=== PATIENT | female | born 1955 | race Caucasian/White ===

== ENCOUNTER 2017-04-04 12:55 | Emergency (ER) | payer MEDICAID ==
[~2017-04-04] VITALS: Ht 157.5 cm; Wt 47.6 kg
[2017-04-04 13:01] VITALS: Ht 157.5 cm; Wt 47.6 kg
[2017-04-04 14:28] VITALS: BP 118/65
== END 2017-04-04 14:28 | disposition home or self-care (01) ==
LOC: ED 12:55
DX: J11.1 Influenza due to unidentified influenza virus with other respiratory manifestations (principal); E11.9 Type 2 diabetes mellitus without complications